=== PATIENT | male | born 1980 ===

== ENCOUNTER 2017-10-14 14:34 | Emergency (ER) | payer SELFPAY ==
[2017-10-14 15:18] VITALS: BMI 25.8
[2017-10-14 15:21] VITALS: TEMP 97.5
--- NOTE | 2017-10-14 16:25 | RAD ---
PROCEDURE: Right Foot Radiographs. HISTORY: Right foot pain COMPARISON: None. FINDINGS: BONES: Bone alignment and mineralization are normal. No acute fracture. JOINTS: Normal. SOFT TISSUES: There is mild soft tissue swelling lateral to the 5th MTP joint. OTHER FINDINGS: None. IMPRESSION: Mild soft tissue swelling lateral to the 5th MTP joint. No acute fracture or dislocation.
--- NOTE | 2017-10-14 16:52 | C.PDOC ---
History Of Present Illness Patient presents to ED c/o right 5th toe pain after a hand truck fell onto it 2 days ago. He denies other injuries, and states pain worsens with ambulating. Time Seen by Provider: 10/14/17 15:22 Chief Complaint (Nursing): Lower Extremity Problem/Injury History Per: Patient History/Exam Limitations: no limitations Onset/Duration Of Symptoms: Days (2) Severity: Mild Past Medical History Reviewed: Historical Data, Nursing Documentation, Vital Signs Vital Signs: Last Vital Signs Temp 97.5 F L 10/14/17 15:17 Pulse 79 10/14/17 17:01 Resp 20 10/14/17 17:01 BP 130/72 10/14/17 17:01 Pulse Ox 98 10/14/17 17:01 - Medical History PMH: No Chronic Diseases Family History: States: No Known Family Hx - Social History Hx Alcohol Use: No Hx Substance Use: No - Immunization History Hx Tetanus Toxoid Vaccination: No Hx Influenza Vaccination: No Hx Pneumococcal Vaccination: No Review Of Systems Except As Marked, All Systems Reviewed And Found Negative. Constitutional: Negative for: Fever, Chills Cardiovascular: Negative for: Chest Pain Respiratory: Negative for: Shortness of Breath Musculoskeletal: Positive for: Other (right 5th toe pain, swelling ) Skin: Negative for: Rash Neurological: Negative for: Weakness, Numbness Physical Exam - Physical Exam Appears: Well, Non-toxic, No Acute Distress Skin: Normal Color, Warm, Dry Oral Mucosa: Moist Cardiovascular: Rhythm Regular Respiratory: Normal Breath Sounds, No Rales, No Rhonchi, No Wheezing Extremity: Tenderness (right 5th toe TTP), Capillary Refill (< 2sec all digits ) , No Deformity, Swelling (mild swelling at erythema of R 5th toe ) Pulses: Right Dorsalis Pedis: Normal Neurological/Psych: Oriented x3, Normal Sensation Gait: Steady ED Course And Treatment O2 Sat by Pulse Oximetry: 96 (RA) Pulse Ox Interpretation: Normal Progress Note: Xray of right foot ordered and reviewed - (+) for nondisplaced fx of 5th right toe. Patient marcio taped and placed in orthopedic shoe by motor vehicle technician. Rx for naprosyn given. Patient instructed to follow up with orthopedics within 1 week. He understands he should return to ED if symptoms worsen. Disposition Counseled Patient/Family Regarding: Studies Performed, Diagnosis, Need For Followup, Rx Given - Disposition Referrals: [facility] [Outside] [facility] [Outside] Disposition: HOME/ ROUTINE Disposition Time: 16:50 Condition: STABLE Additional Instructions: FOLLOW UP WITH PODIATRY WITHIN 1 WEEK USE PAIN MEDICATION NEEDED RETURN TO ER IF SYMPTOMS WORSEN Prescriptions: Naproxen 375 mg PO BID PRN #20 tablet PRN Reason: pain Instructions: Toe Fracture (ED) Forms: e-SENS (Anguillan) Print Language: TURKISH - Clinical Impression Clinical Impression: Fracture of fifth toe, right, closed
[2017-10-14 17:03] VITALS: BP 130/72; PULSE 79; RESP 20
[2017-10-14 18:34] VITALS: O2SAT 96
== END 2017-10-14 17:02 | disposition home or self-care (01) ==
LOC: C.ER 14:34
DX: S92.501A Displaced unspecified fracture of right lesser toe(s), initial encounter for closed fracture (principal); W20.8XXA Other cause of strike by thrown, projected or falling object, initial encounter